=== PATIENT | male | born 1980 | race African-American/Black ===

== ENCOUNTER 2016-08-07 22:15 | Emergency (ER) | payer OTHER ==
[~2016-08-07] VITALS: Ht 180.3 cm; Wt 98.4 kg
--- NOTE | ~2016-08-07 | EKG ---
[place] [address] [facility] [place] [address] ELECTROCARDIOGRAM REPORT Name: LUIS GARCIA Room #: MAGALIE Cristobal#: [id number] Admission: 08/07/16 Attend Phys: Discharge: 08/08/16 Date of : 78 Report #: [id number] THIS REPORT FOR: //name// [facility] ED Test Date: 2016-08-07 Test Time: 23:42:05 Pat Name: LUIS GARCIA Department: Room: Gender: [employer] Professional: TENZIN : 1980 Requested By: Estela Bergman Order Number: [id number] MD: Julio Dickey Measurements Intervals [place] Rate: 64 P: 61 OK: 192 QRS: 62 QRSD: 81 T: 5 QT: 407 QTc: 420 Interpretive Statements Sinus rhythm Consider left ventricular hypertrophy No previous ECG available for comparison Electronically Signed On 08-12-2016 8:09:48 CDT by Julio Dickey [email or web address] <ELECTRONICALLY SIGNED> By: Julio Dickey MD 08/12/16 0809 [id number] Julio Dickey MD /EPI
[~2016-08-07 22:15] MED LIST: PERCOCET 5-3251 EACH PO; PHENERGAN 25 MG25 M1 PO; TAMSULOSIN HCL0.4 M1 PO
[2016-08-07 23:29] LABS: URINE BILIRUBIN NEGATIVE (Negative); URINE BLOOD NEGATIVE (Negative); URINE COLOR YELLOW; URINE GLUCOSE-RANDOM* NEGATIVE (Negative); URINE KETONES NEGATIVE (Negative); URINE LEUKOCYTES-REFLEX NEGATIVE (Negative); URINE PROTEIN (DIPSTICK) NEGATIVE (Negative)
[2016-08-07 23:42] LABS: AMP/METHAMP Negative (Negative); BARBITURATES Negative (Negative); BENZODIAZEPINES Negative (Negative); COCAINE Negative (Negative); METHADONE Negative (Negative); OPIATES Negative (Negative); PCP Negative (Negative); THC Negative (Negative)
[2016-08-08 00:06] LABS: HEMATOCRIT 41.5 % (42.0-52.0); MCH 25.3 pg (26.0-34.0); MCHC 33.8 g/dL (28.0-37.0); MCV 74.8 fL (80.0-100.0); PLATELET COUNT 189 thou/uL (150-400); RBC 5.54 mil/uL (4.50-6.00); RDW 15.6 % (10.5-14.5); WBC 8.2 thou/uL (4.0-11.0)
[2016-08-08 00:14] LABS: ANION GAP 6 mmol/L (7-16); BUN 14 mg/dL (7-18); CALCIUM 8.8 mg/dL (8.5-10.1); CHLORIDE 104 mmol/L (98-107); CO2 28 mmol/L (21-32); CREATININE 1.3 mg/dL (0.7-1.3); GLUCOSE 95 mg/dL (74-106); POTASSIUM 3.8 mmol/L (3.5-5.1); SODIUM 138 mmol/L (136-145)
[2016-08-08 00:18] LABS: MANUAL DIFF YES
[2016-08-08 00:22] LABS: ALBUMIN 4.3 g/dL (3.4-5.0); ALKALINE PHOSPHATASE 100 U/L (46-116); SGOT 24 U/L (15-37); SGPT 32 U/L (30-65); TOTAL BILIRUBIN 0.8 mg/dL (<0.1-1.0); TOTAL PROTEIN 7.6 g/dL (6.4-8.2); TROPONIN-I < 0.04 ng/mL (<0.04-0.07)
[2016-08-08 01:06] LABS: ABSOLUTE NEUTROPHILS 7.7 thou/uL (1.4-8.2); OVALOCYTES 4+; TOTAL CELL COUNT 100
[2016-08-08 01:07] LABS: MICROCYTES 1+
[2016-08-08 01:15] VITALS: BP 134/77
== END 2016-08-08 01:37 | disposition home or self-care (01) ==
LOC: ER 22:15
PROVIDERS: Emergency Medicine
DX: R53.1 Weakness (principal); R10.9 Unspecified abdominal pain